=== PATIENT | female | born 1965 | race Caucasian/White ===

== ENCOUNTER 2021-12-06 04:18 | Day surgery (SDC) | payer OTHER ==
[2021-12-02 17:32] VITALS: BMI 28.5
[2021-12-06] MEDS ORDERED: SUCCINYLCHOLINE CHLORIDE 200 MG/10 ML SYRINGE ONE (07:28)
[2021-12-06] MEDS ORDERED: MIDAZOLAM HCL 2 MG/2 ML SINGLE DOSE VIAL ONE (07:28)
[2021-12-06] MEDS ORDERED: PROPOFOL 20 ML ONE ×3 (07:29)
[2021-12-06] MEDS ORDERED: LIDOCAINE HCL/PF 2% SDV 5ML VIAL ONE (07:35)
[2021-12-06] MEDS ORDERED: GLYCOPYRROLATE 0.2 MG/1 ML VIAL ONE (07:35)
[2021-12-06] MEDS ORDERED: oxyCODONE HCL 5 MG TABLET PO PRN ×2 (07:40→08:36)
[2021-12-06] MEDS ORDERED: IBUPROFEN 800 MG/8 ML IJ IVPB PRN (07:40)
[2021-12-06] MEDS ORDERED: IBUPROFEN 600 MG TABLET (FP) PO PRN (07:40)
[2021-12-06] MEDS ORDERED: ONDANSETRON 4 MG/2 ML VIAL IVPUSH PRN ×2 (07:40→08:36)
[2021-12-06] MEDS ORDERED: ELECTROLYTE-148 SOLN 1,000 ML IV SCH (07:45)
[2021-12-06] MEDS ORDERED: ONDANSETRON 4 MG/2 ML VIAL ONE (07:46)
[2021-12-06] MEDS ORDERED: DEXAMETHASONE SOD PHOSPHATE 4 MG/1 ML VIAL ONE (07:46)
[2021-12-06] MEDS ORDERED: KETOROLAC TROMETHAMINE 30 MG/1 ML VIAL ONE (07:52)
[2021-12-06] MEDS ORDERED: LABETALOL HCL 5 MG/1 ML (100MG/20 ML VIAL) ONE (08:18)
[2021-12-06] MEDS ORDERED: SILVER NITRATE 75% APPLIC STCK 1 PKT EACH TP ONE (08:19)
[2021-12-06] MEDS ORDERED: LACTATED RINGERS SOLUTION 1,000 ML IV SCH (08:45)
[2021-12-06] MEDS ORDERED: FENTANYL CITRATE/PF 50 MCG/ML VIAL ONE (08:47)
[2021-12-06 11:44] VITALS: BP 130/70; PULSE 70; TEMP 98
== END 2021-12-06 11:44 | disposition home or self-care (01) ==
LOC: JASU-SURG 04:18
PROVIDERS: ATTEND Obstetrics & Gynecology
PROC: 0UDB8ZZ Extraction of Endometrium, Via Natural or Artificial Opening Endoscopic (ICD-10-PCS; 2021-12-06)
PROC: 0UB98ZZ Excision of Uterus, Via Natural or Artificial Opening Endoscopic (ICD-10-PCS; 2021-12-06)
PROC: 0UDB7ZZ Extraction of Endometrium, Via Natural or Artificial Opening (ICD-10-PCS; 2021-12-06)
PROC: 0U5B8ZZ Destruction of Endometrium, Via Natural or Artificial Opening Endoscopic (ICD-10-PCS; principal; 2021-12-06 07:30)
DX: N95.0 Postmenopausal bleeding (principal); N84.0 Polyp of corpus uteri
CPT/HCPCS: 88305-TC; 94760